=== PATIENT | female | born 1965 | race Caucasian/White ===

== ENCOUNTER 2022-10-28 15:49 | Outpatient (REF) | payer OTHER, SELFPAY ==
--- NOTE | ~2022-10-28 | MR_ITS ---
EXAMINATION: MR BRAIN WITHOUT CONTRAST CLINICAL INFORMATION: Memory problems. COMPARISON: None. TECHNIQUE: Multiplanar, multisequence imaging of the brain was performed without contrast. Limited study with motion artifacts. FINDINGS: No diffusion abnormalities are identified to suggest an acute infarct. No mass effect or midline shift is seen. [id number]-io-[id number] small vessel ischemic changes noted in the cerebral white matter with generalized parenchymal volume loss and concordant ex vacuo prominence of the ventricles. No evidence of hydrocephalus. No extra-axial fluid collections are seen. The brainstem and cerebellum are normal. The gradient refocused acquisition is normal. The craniovertebral junction, marrow signal, and midline structures are normal. The major intracranial flow-voids at the level of the [place] are preserved. The dural venous sinus flow-voids are maintained. The mastoid air cells are well aerated. Mild ethmoid sinus mucosal thickening noted. MR/MR head/brain wo con IMPRESSION: No acute process. [id number] chronic white matter microangiopathy and generalized parenchymal volume loss.
== END 2022-10-28 15:50 | disposition home or self-care (01) ==
LOC: HO.MRI 15:49
PROVIDERS: Visit Provider Psychiatry & Neurology Neurology
DX: R41.3 Other amnesia (principal)
CPT/HCPCS: 70551

== ENCOUNTER → 2022-12-06 10:15 | Outpatient (BNVA) | payer OTHER, SELFPAY | PROVIDERS: PCP Internal Medicine; Visit Provider Psychiatry & Neurology Neurology | DX: R41.3 Other amnesia (principal) ==

== ENCOUNTER → 2023-02-03 12:31 | Outpatient (BNVA) | payer OTHER, SELFPAY | PROVIDERS: PCP Internal Medicine; Visit Provider Psychiatry & Neurology Neurology | DX: R41.3 Other amnesia (principal); Z81.8 Family history of other mental and behavioral disorders; F03.90 Unspecified dementia, unspecified severity, without behavioral disturbance, psychotic disturbance, mood disturbance, and anxiety ==

== ENCOUNTER 2023-05-31 15:03 | Outpatient (AMB) | payer OTHER, SELFPAY ==
--- NOTE | 2023-05-31 15:04 | A.OFFVIS_ITS ---
Intake Intake Visit Reasons: Per Andisabel # [phone] Intake Note: patient presents for follow up Allergies No Known Allergies Allergy (Verified 05/31/23 15:04) Medication List - Last Reconciled 05/31/23 by Lorenza Suh MD ascorbate calcium (vitamin C) 500 mg PO DAILY calcium phos,dibas-vitamin D3 77-400 mg-unit tabs PO DAILY HPI HPI Comments History of Present Illness Details 57y/o female calls for follow up for memory issues. Her family is unable to bring her for appointment due to behavior issues.she is on donepezil 10mg qd but refuses to take it She has fh/o dementia - mother, 2 sisters ( passed-had dementia) , 1 sister 55 y/o has dementia. she is accompanied by her daughter who thinks she has short term memory issues. patient denies any problems Patient is very paranoid now.Her mRI brain showed mi ld white matter changes and labs were normal Patient is upset that she is being tested for dementia. No h/o anxiety, depression. she has sleep problems- falling and staying asleep.she denies snoring. [facility] Family History Mother Dementia Hypertension Father Myocardial infarction Diabetes Sister Breast cancer Dementia Sister Dementia Ovarian cancer Sister Dementia Brother Hypertension CAD (coronary artery disease) CVA (cerebral vascular accident) Arthritis Social History Alcohol intake: never Patient Tobacco Use Status: Never used Tobacco Assessment & Plan Assessment & Plan (1) Family history of first degree relative with dementia: Code(s): Z81.8 - Family history of other mental and behavioral disorders (2) Dementia: Comment: Likely ALzheimers Code(s): F03.90 - Unspecified dementia, unspecified severity, without behavioral disturbance, psychotic disturbance, mood disturbance, and anxiety Plan I will trial her on exelon patch 4.6 mg qd will consider referring her to tertiary center for new experimental therapies. Orders: Referrals Neurology Referral F03.90 - Unspecified dementia, unspecified severity, without behavioral disturbance, psychotic disturbance, mood disturbance, and anxiety, Z81.8 - Family history of other mental and behavioral disorders Medications: New rivastigmine (Exelon Patch) 4.6 mg transdermal DAILY 30 ea 6RF Telehealth Telehealth Location of provider rendering services: practice address Location of patient: address on file Patient Identification confirmed using: Name, : Yes Telehealth method: voice only Patient verbally consented to treatment: Yes Patient verbally consented to billing insurance company: Yes Patient informed of any privacy concerns related to visit: Yes Coding Level of Care Code Tele Est Pt Level 4 (60668) Diagnoses Family history of first degree relative with dementia Z81.8 Dementia F03.90 Time Spent (min) 22
== END 2023-05-31 16:41 | disposition home or self-care (01) ==
LOC: HO.HSMS 15:03
PROVIDERS: PCP Internal Medicine; Visit Provider Psychiatry & Neurology Neurology
DX: Z81.8 Family history of other mental and behavioral disorders (principal); F03.90 Unspecified dementia, unspecified severity, without behavioral disturbance, psychotic disturbance, mood disturbance, and anxiety
CPT/HCPCS: 99214

== ENCOUNTER → 2023-05-31 15:03 | Outpatient (BNVA) | payer OTHER, SELFPAY | PROVIDERS: PCP Internal Medicine; Visit Provider Psychiatry & Neurology Neurology ==

== ENCOUNTER 2023-08-30 12:25 | Outpatient (AMB) | payer OTHER, SELFPAY ==
--- NOTE | 2023-08-30 12:36 | MHC.OFFVIS ---
Intake Vital Signs 08/30/23 12:37 Height 5 ft 3 in Weight 99 lb BMI 17.5 BP 118/62 Blood Pressure Location Rt brachial Position Sitting Respiration 15 Pulse 62 Pulse Source Pulse Oximeter Pulse Oximetry (%) 98 Oxygen Delivery Method Room Air Intake Visit Reasons: 3m f/u memory issues-Confirmed Intake Note: Patient presents for 3 month follow up. Patient states she has been having trouble falling asleep. Once she is asleep she is able to sleep the whole night. Allergies No Known Allergies Allergy (Verified 08/30/23 12:41) HPI HPI Comments History of Present Illness Details 57y/o female comes for follow up for memory issues. .she is on donepezil 10mg qd but refused to take it.She is on exelon patch She has fh/o dementia - mother, 2 sisters ( passed-had dementia) , 1 sister 55 y/o has dementia. she is accompanied by her daughter who thinks she has short term memory issues. patient denies any problems Patient is very paranoid now.Her mRI brain showed mild white matter changes and labs were normal Patient is upset that she is being tested for dementia. No h/o anxiety, depression. she has sleep problems- falling and staying asleep.she denies snoring. [facility] Family History Mother Dementia Hypertension Father Myocardial infarction Diabetes Sister Breast cancer Dementia Sister Dementia Ovarian cancer Sister Dementia Brother Hypertension CAD (coronary artery disease) CVA (cerebral vascular accident) Arthritis Social History Alcohol intake: never Patient Tobacco Use Status: Never used Tobacco Review of Systems Neuro Reports confusion Psych Reports confusion Physical Exam Vital Signs: Last Vital Signs Pulse 62 08/30/23 12:37 Resp 15 08/30/23 12:37 BP 118/62 08/30/23 12:37 Pulse Ox 98 08/30/23 12:37 Oxygen Delivery Method Room Air 08/30/23 12:37 BMI result Body Mass Index 17.5 Const General: cooperative, healthy appearing, comfortable and confusion Nutritional Appearance: average body habitus Orientation/consciousness: confusion Neuro Other: MMSE 20/30 General: gait normal, tone normal, moves all extremities and confusion Cognition (Neuro): abnormal cognition Gait exam (Neuro): Normal gait present Orientation What is the (year) (season) (date) (day) (month)?: year, season and month Where are we (state) (county) (town or city) (hospital) (floor)?: state, town or city, hospital/clinic and floor Registration Name of 3 unrelated objects clearly and slowly, then ask patient to repeat all 3 of them. (1st repeat determines score. Make sure they can repeat all three): object 1, object 2 and object 3 Recall Ask patient to repeat the 3 items from question #3.: object 1 and object 2 Language Show patient a wristwatch & ask what it is. Repeat for pencil.: watch and pencil Ask the patient to repeat the phrase 'No ifs, ands, or buts' after you.: correct Ask the patient to 'take a piece of paper with their right hand' 'fold paper in half' 'place paper on floor': take paper in right hand and fold paper in half Print the sentence 'CLOSE YOUR EYES' on a piece. If patient actually closes eyes then score.: followed written direction Give patient a blank piece of paper & ask to write a sentence. Score if it contains a noun & verb.: sentence contains subject and verb Score Score: 19 Assessment & Plan Assessment & Plan (1) Family history of first degree relative with dementia: Code(s): Z81.8 - Family history of other mental and behavioral disorders (2) Dementia: Comment: Likely ALzheimers Code(s): F03.90 - Unspecified dementia, unspecified severity, without behavioral disturbance, psychotic disturbance, mood disturbance, and anxiety Plan I will trial her on exelon patch 9.5 mg qd will consider referring her to tertiary center for new experimental therapies. Medications: Changed From rivastigmine (Exelon Patch) 4.6 mg transdermal DAILY 30 ea 6RF To rivastigmine 1 patch transdermal DAILY 30 ea 6RF Coding Level of Care Code Est Pt Level 4 (39466) Diagnoses Family history of first degree relative with dementia Z81.8 Dementia F03.90
[2023-08-30 12:37] VITALS: BP 118/62; PULSE 62; RESP 15; O2SAT 98; BMI 17.5
== END 2023-08-30 13:00 | disposition home or self-care (01) ==
PROVIDERS: Visit Provider Psychiatry & Neurology Neurology
DX: Z81.8 Family history of other mental and behavioral disorders (principal); F03.90 Unspecified dementia, unspecified severity, without behavioral disturbance, psychotic disturbance, mood disturbance, and anxiety
CPT/HCPCS: 99214

== ENCOUNTER → 2023-08-30 12:25 | Outpatient (BNVA) | payer OTHER, SELFPAY | PROVIDERS: Visit Provider Psychiatry & Neurology Neurology | DX: R41.3 Other amnesia (principal); Z81.8 Family history of other mental and behavioral disorders; F03.90 Unspecified dementia, unspecified severity, without behavioral disturbance, psychotic disturbance, mood disturbance, and anxiety ==

== ENCOUNTER 2024-03-06 14:09 | Outpatient (REF) | payer OTHER, SELFPAY | END 2024-03-06 14:10 | disposition home or self-care (01) | LOC: CF 14:09 | PROVIDERS: PCP Internal Medicine; Visit Provider Psychiatry & Neurology Neurology | DX: F03.90 Unspecified dementia, unspecified severity, without behavioral disturbance, psychotic disturbance, mood disturbance, and anxiety (principal); Z81.8 Family history of other mental and behavioral disorders | CPT/HCPCS: 81401 ==

== ENCOUNTER 2024-03-06 14:09 | Outpatient (AMB) | payer OTHER, SELFPAY ==
--- NOTE | 2024-03-06 14:11 | A.OFFVIS_ITS ---
Intake Vital Signs 03/06/24 14:12 Respiration 16 Pulse 74 Pulse Source Pulse Oximeter Pulse Oximetry (%) 98 Oxygen Delivery Method Room Air Intake Visit Reasons: 6 mo f/u - Memory-CONF Intake Note: Pt presents for a 6 month follow up for memory issues. 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 .she is not sle eping at night and wanders- last month she wandered out of the house . Now there are locks. .She is on exelon patch she has been physically aggressive with her . she still cooks and cleans but has trouble with recipes. she has been throwing stuff from the house- trying to throw her good clothes and utensils She has fh/o dementia - mother, 2 sisters ( passed-had dementia) , 1 sister 55 y/o has dementia. she is accompanied by her daughter who thinks she has short term memory issues. patient denies any problems Patient is very paranoid now.Her mRI brain showed mild white matter changes and labs were normal Patient is upset that she is being tested for dementia. No h/o anxiety, depression. PFSH Family History Mother Dementia Hypertension Father Myocardial infarction Diabetes Sister Breast cancer Dementia Sister Dementia Ovarian cancer Sister Dementia Brother Hypertension CAD (coronary artery disease) CVA (cerebral vascular accident) Arthritis Social History Alcohol intake: never Patient Tobacco Use Status: Never used Tobacco Review of Systems Neuro Reports confusion Psych Reports confusion Physical Exam Vital Signs: Last Vital Signs Pulse 74 03/06/24 14:12 Resp 16 03/06/24 14:12 Pulse Ox 98 03/06/24 14:12 Oxygen Delivery Method Room Air 03/06/24 14:12 Const General: cooperative, healthy appearing, comfortable and confusion Nutritional Appearance: average body habitus Orientation/consciousness: confusion Neuro Other: MMSE 20/30 General: gait normal, tone normal, moves all extremities and confusion Cognition (Neuro): abnormal cognition Gait exam (Neuro): Normal gait present Assessment & Plan Assessment & Plan (1) Family history of first degree relative with dementia: Code(s): Z81.8 - Family history of other mental and behavioral disorders (2) Dementia: Comment: Likely ALzheimers Code(s): F03.90 - Unspecified dementia, unspecified severity, without behavioral disturbance, psychotic disturbance, mood disturbance, and anxiety Plan Continue exelon patch 9.5 mg qd Start memantine XR 7 mg qd and titrate to 28mg qd Start quetiapine 25 mg qhs for will check for APO E 4 will consider lequembi Orders: Orders Other Ref Test - [facility] [place] F03.90 - Unspecified dementia, unspecified low rity, without behavioral disturbance, psychotic disturbance, mood disturbance, and anxiety, Z81.8 - Family history of other mental and behavioral disorders Referrals Speech and Hearing Referral F03.90 - Unspecified dementia, unspecified severity, without behavioral disturbance, psychotic disturbance, mood disturbance, and anxiety Medications: New memantine 7 mg PO DAILY 30 ea 0RF quetiapine 25 mg PO BEDTIME 30 tabs 6RF Coding Level of Care Code Est Pt Level 4 (28340) Diagnoses Family history of first degree relative with dementia Z81.8 Dementia F03.90
[2024-03-06 14:12] VITALS: PULSE 74; RESP 16; O2SAT 98
== END 2024-03-06 14:43 | disposition home or self-care (01) ==
PROVIDERS: PCP Internal Medicine; Visit Provider Psychiatry & Neurology Neurology
DX: Z81.8 Family history of other mental and behavioral disorders (principal); F03.90 Unspecified dementia, unspecified severity, without behavioral disturbance, psychotic disturbance, mood disturbance, and anxiety
CPT/HCPCS: 99214

== ENCOUNTER 2024-05-02 19:12 | Outpatient (REF) | payer OTHER, SELFPAY ==
--- NOTE | ~2024-05-02 | MR_ITS ---
MRI OF THE BRAIN WITHOUT IV CONTRAST INDICATION: Dementia. COMPARISON: Brain MRI 10/28/2022. TECHNIQUE: Multiplanar multisequence MR imaging of the brain was obtained without IV contrast. FINDINGS: There is no hydrocephalus, extra-axial surface collection, or herniation. There is global cerebral volume loss and there is moderate chronic microangiopathy, both progressed when compared to the prior brain MRI. The major flow voids at the skull base are preserved. There is no acute infarct on diffusion-weighted imaging. There is no intracranial hemorrhage on the gradient recalled echo acquisition. The midline structures are normal. The cerebellar tonsils are normally positioned. The cerebellum and brainstem are normal. The craniocervical junction is normal. Osseous marrow signal intensity is homogenous. The visualized soft tissues are unremarkable. Small right mastoid effusion. MR/MR head/brain wo con IMPRESSION: No acute intracranial findings. There is global cerebral volume loss and there is moderate chronic microangiopathy, both progressed when compared to the prior brain MRI.
== END 2024-05-02 19:13 | disposition home or self-care (01) ==
LOC: HO.MRI 19:12
PROVIDERS: Visit Provider Psychiatry & Neurology Neurology
DX: F03.90 Unspecified dementia, unspecified severity, without behavioral disturbance, psychotic disturbance, mood disturbance, and anxiety (principal)
CPT/HCPCS: 70551

== ENCOUNTER 2024-06-13 16:38 | Outpatient (REF) | payer OTHER, SELFPAY ==
[2024-06-13 16:58] LABS: MANUAL DIFF FLAG NO
[2024-06-13 17:47] LABS: Basophils Absolute Auto 0.1 X10*3/uL (0.0-0.2); Basophils Percent Auto 1.1 % (0-2); Eosinophils Absolute Auto 0.2 X10*3/uL (0.0-0.4); Eosinophils Percent Auto 3.4 % (0-4); Hematocrit 41.4 % (37.0-47.0); Hemoglobin 13.4 g/dl (12.0-16.0); Imm Gran Abs Auto 0.01 X10*3/uL (0.00-0.03); Imm Gran Pct Auto 0.2 % (0.0-0.4); Lymphocytes Absolute Auto 1.3 X10*3/uL (1.2-4.9); Lymphocytes Percent Auto 28.3 % (20-40); Mean Corpuscular HGB Conc 32.4 g/dl (31.0-35.0); Mean Corpuscular Hemoglobin 31.3 pg (27.0-33.0); Mean Corpuscular Volume 96.7 fL (80.0-98.0); Mean Platelet Volume 10.3 fL (9.4-12.3); Monocytes Absolute Auto 0.5 X10*3/uL (0.1-1.2); Monocytes Percent Auto 11.2 % (2-11); Neutrophils Absolute Auto 2.6 x10*3/uL (2.0-8.3); Neutrophils Percent Auto 55.8 % (45-73); Platelet Count 219 X10*3/uL (160-400); Red Blood Count 4.28 X10*6/uL (4.20-5.50); White Blood Count 4.7 X10*3/uL (4.8-10.8)
[2024-06-13 19:10] LABS: Alanine Aminotransferase 38 U/L (0-31); Albumin Level 4.5 g/dL (3.5-5.0); Alkaline Phosphatase 109 U/L (39-117); Anion Gap 13 (12-20); Aspartate Amino Transferase 29 U/L (5-31); Bilirubin Total 0.4 mg/dL (0.0-1.0); Blood Urea Nitrogen 14 mg/dL (9-16); Calcium 9.6 mg/dL (8.4-10.2); Carbon Dioxide 27 mmol/L (22-29); Chloride 107 mmol/L (96-108); Estimated Glomerular Filt Rate > 60; Glucose Random 84 mg/dL (60-115); Potassium 4.2 mmol/L (3.3-5.1); Sodium 143 mmol/L (135-145); Total Protein 7.6 g/dL (6.5-8.0)
[2024-06-13 19:27] LABS: TSH reflex Free T4 1.25 uIU/mL (0.32-4.0)
[2024-06-13 19:40] LABS: Vitamin B12 792 pg/mL (200-900)
[2024-06-13 19:52] LABS: Folate 13.2 ng/mL (> or = 4.0)
[2024-06-13 20:47] LABS: Erythrocyte Sedimentation Rate 3 MM/HR (0-20)
[2024-06-14 10:23] LABS: RPR Rapid Plasma Reagin NON-REACTIVE (NON-REACTIVE)
== END 2024-06-13 16:39 | disposition home or self-care (01) ==
LOC: HO.LAB 16:38
PROVIDERS: Visit Provider Psychiatry & Neurology Neurology
DX: F03.90 Unspecified dementia, unspecified severity, without behavioral disturbance, psychotic disturbance, mood disturbance, and anxiety (principal)
CPT/HCPCS: 36415; 80053; 82607; 82746; 84443; 85025; 85652; 86592

== ENCOUNTER 2025-08-15 09:03 | Outpatient (AMB) | payer MEDICARE, OTHER, SELFPAY ==
--- NOTE | 2025-08-15 09:07 | A.OFFVIS_ITS ---
Vital Signs 08/15/25 09:08 Height 5 ft 3 in Weight 124 lb BMI 22.0 BP 120/74 Blood Pressure Location Rt brachial Position Sitting Pulse 73 Pulse Source Pulse Oximeter Pulse Oximetry (%) 97 Oxygen Delivery Method Room Air Intake Visit Reasons: Follow up Intake Note: Patient presents follow up Dementia medication. Labs in chart Accompanied by: Self / Same As Patient Allergies No Known Allergies Allergy (Verified 08/15/25 09:11) HPI Comments Details: 59y/o female presents for follow up of cognitive decline. Her Diya, helps with history taking today as she is not oriented to self, location or time. She has been forgetful for the past 2+ years. She goes to bed at 6pm and wakes up at 3 am watches tv until 5am. Her takes her to his mother's house daily for 4 hours where she has a NUT SIFTER attending to Moni's ADLs. The NUT SIFTER prepares her meals and keeps her company. She likes to eat oatmeal with coconut oil. Moni's daughter helps with getting her dressed, bathing, and meal preparing at home. Sometimes she will have Bowel and urinary incontinence so now she is starting to wear diapers though she does not like them. She wanders through the house so cameras are installed to observe her escape seeking behaviours . She repeats I clean the house and I watch tv , over and over again. She is confused. She gets aggressive with her and calls him a stalker though feels more comfortable with his mother, and her daughters. She goes for walks with the daughters and is a good walker. She has younger sister 55 year old who has dementia, mom and 2 sisters who passed due to dementia. No h/o anxiety or depression. We attempted MMSE today however pt lacks attention, unable answer questions and repeats, needs redirection. PFSH Family History Mother Dementia Hypertension Father Myocardial infarction Diabetes Sister Breast cancer Dementia Sister Dementia Ovarian cancer Sister Dementia Brother Hypertension CAD (coronary artery disease) CVA (cerebral vascular accident) Arthritis Social History Alcohol intake: never Patient Tobacco Use Status: Never used Tobacco Review of Systems Neuro Reports confusion Psych Reports confusion Physical Exam Vital Signs: Last Vital Signs Pulse 73 08/15/25 09:08 BP 120/74 08/15/25 09:08 Pulse Ox 97 08/15/25 09:08 Oxygen Delivery Method Room Air 08/15/25 09:08 BMI result Body Mass Index 22.0 Const General: cooperative, healthy appearing, comfortable and confusion Nutritional Appearance: average body habitus Orientation/consciousness: confusion Neuro Other: MMSE 20/30 General: gait normal, tone normal, moves all extremities and confusion Cognition (Neuro): abnormal cognition Gait exam (Neuro): Normal gait present Motor exam (neuro): 5/5 motor strength present throughout and Normal motor muscle tone present throughout Language Ask the patient to 'take a piece of paper with their right hand' 'fold paper in half' 'place paper on floor': take paper in right hand Score Score: 1 Assessment & Plan Assessment & Plan (1) Family history of first degree relative with dementia: Code(s): Z81.8 - Family history of other mental and behavioral disorders Category: Medical (2) Dementia: Comment: Likely ALzheimers Code(s): F03.90 - Unspecified dementia, unspecified severity, without behavioral disturbance, psychotic disturbance, mood disturbance, and anxiety Category: Medical Qualifiers: Dementia type: Alzheimer's Alzheimer's disease onset: early onset Dementia severity: unspecified severity Dementia behavioral or psychological symptom: with other behavioral disturbance Qualified Code(s): G30.0 - Alzheimer's disease with early onset; F02.818 - Dementia in other diseases classified elsewhere, unspecified severity, with other behavioral disturbance (3) Cognitive decline: Code(s): R41.89 - Other symptoms and signs involving cognitive functions and awareness Category: Medical (4) Excessive daytime sleepiness: Code(s): G47.19 - Other hypersomnia Category: Medical Plan Dementia continue exelon patch 9.5 mg qd Start memantine XR 7 mg qd and titrate to 28mg qd Start quetiapine 25 mg qhs for mood disturbances and combative / aggressive behavior. MMSE unable today due to moderate/ severe dementia will evaluate with MRI for comparison and PETscan if pt. amenable. Labs to r/o deficiencies will check for APO E 4 will consider lequembi- if pt is able to complete all requirements, pt. information is provided for AD therapy and infusions. Continue to encourage social activities for pt., puzzles, reading books, writing, or dancing, walking, etc. exercise daily is encouraged. F/u in 3 months Orders: Orders Complete Blood Count no Diff Today G47.19 - Other hypersomnia, R41.89 - Other symptoms and signs involving cognitive functions and awareness Comprehensive Met. Panel Today G47.19 - Other hypersomnia, R41.89 - Other symptoms and signs involving cognitive functions and awareness Ferritin Today G47.19 - Other hypersomnia, R41.89 - Other symptoms and signs involving cognitive functions and awareness Methylmalonic Acid Today G47.19 - Other hypersomnia, G47.9 - Sleep disorder, unspecified, R41.89 - Other symptoms and signs involving cognitive functions and awareness, R53.83 - Other fatigue Homocysteine Today G47.19 - Other hypersomnia, G47.9 - Sleep disorder, unspecified, R41.89 - Other symptoms and signs involving cognitive functions and awareness, R53.83 - Other fatigue Vitamin B1 Today G47.19 - Other hypersomnia, R41.89 - Other symptoms and signs involving cognitive functions and awareness TSH reflex Free T4 Today G47.19 - Other hypersomnia, R41.89 - Other symptoms and signs involving cognitive functions and awareness Other [place] [facility] [place] F02.80 - Dementia in other diseases classified elsewhere, unspecified severity, without behavioral disturbance, psychotic disturbance, mood disturbance, and anxiety, G30.9 - Alzheimer's disease, unspecified MR head/brain wo/w con Today R41.89 - Other symptoms and signs involving cogn itive functions and awareness Vitamin D 25-OH Total Today G47.19 - Other hypersomnia, R41.89 - Other symptoms and signs involving cognitive functions and awareness Vitamin B6 Today G47.19 - Other hypersomnia, R41.89 - Other symptoms and signs involving cognitive functions and awareness Vitamin B12 and Folate Today G47.19 - Other hypersomnia, R41.89 - Other symptoms and signs involving cognitive functions and awareness Medications: Refilled memantine 28 mg PO DAILY 30 ea 6RF 30 days quetiapine 25 mg PO BEDTIME 30 tabs 6RF rivastigmine 1 patch transdermal DAILY 30 ea 6RF Coding Level of Care Code Est Pt Level 4 (71179) Diagnoses Family history of first degree relative with dementia Z81.8 Early onset Alzheimer's dementia with other behavioral disturbance, unspecified dementia severity G30.0; F02.818 Dementia type: Alzheimer's Alzheimer's disease onset: early onset Dementia severity: unspecified severity Dementia behavioral or psychological symptom: with other behavioral disturbance Cognitive decline R41.89 Excessive daytime sleepiness G47.19
[2025-08-15 09:08] VITALS: BP 120/74; PULSE 73; O2SAT 97; BMI 22.0
--- OUTSIDE RECORDS SUMMARY | 2025-08-15 09:49 | XMS_ITS | Clinical Summary ---
Author Organization Patient Business Ser [facility] Address [address] [place] [address] Care Team Providers Care Casino Surveillance Officer Name Role Phone Seun Frazier MD Primary Care Provider [phone] Allergies No known active allergies Medications rivastigmine (EXELON) 9.5 mg/24 hour APPLY 1 PATCH TRANSDERMALLY DAILY 01/31/20 24 Active QUEtiapine (SEROquel) 25 mg tablet Take 1 tablet (25 mg total) by mouth at bedtime. at bedtime 90 tablet 1 08/08/20 25 Active memantine (NAMENDA XR) 28 mg extended release capsule Take 1 capsule (28 mg total) by mouth 1 (one) time each day. 90 each 1 08/08/20 25 Active memantine (NAMENDA XR) 7 mg extended release capsule Take 1 capsule (7 mg total) by mouth 1 (one) time each day. 03/06/20 24 025 Discontin ued(Patie nt Discharge ) QUEtiapine (SEROquel) 25 mg tablet TAKE 1 TABLET BY MOUTH EVERY DAY AT BEDTIME 03/06/20 24 025 Discontin ued(Reord er) memantine (NAMENDA XR) 28 mg extended release capsule Take 1 capsule (28 mg total) by mouth 1 (one) time each day. 10/08/20 24 025 Discontin ued(Reord er) Active Problems Problem Noted Date Diagnosed Date Severe Alzheimer's dementia (CMS/HCC V24, CMS/HC C V28) 04/29/2025 Ganglion cyst of wrist 09/05/2009 Varicose veins of legs 04/07/2009 Benign neoplasm of skin of lower limb, including hip 08/05/2005 Benign neoplasm of skin of upper limb, including shoulder 08/05/2005 Ovarian cyst 08/05/2005 Overview (08/22/2024): Other and unspecified ovarian cyst Encounters Date Type Department Care Team Description 08/08/2025 9:00 AM EDT [facility] [address] [place] [phone] Gabby Burdick, GIA Severe Alzheimer's dementia with agitation, unspecified timing of dementia onset ([facility] V24, [facility] V28) 08/05/2025 Telephone Internal Medicine - [address] [phone] Seun Frazier MD 07/15/2025 Telephone Internal Medicine - [address] [phone] Seun Frazier MD 06/28/2025 Telephone Internal Medicine - [address] [phone] Seun Frazier MD 06/07/2025 Telephone Internal Medicine - [address] [phone] Seun Frazier MD from Last 3 Months Immunizations Name Administration Dates Next Due Hepatitis B (Recombivax HB-D ialysis) 18yo and older 05/27/2003,01/28/2003,12/26/2002 Influenza Quadravalent, MDCK , 0.5ml, preservative free (Flucelvax) 6mo and older 12/28/2022 Moderna SARS-CoV-2 COVID-19, mRNA, LNP-S, preservative free 05/13/2021,04/15/2021 Tdap Tetanus diptheria acell ular pertussis (Boostrix; Adacel) 7yo and older 09/05/2019,04/07/2009 Surgical History Surgery Date Site/Laterality Comments TUBAL LIGATION 1998 PROCEDURE: HISTORICAL TUBAL LIGATION Medical History Medical History Date Comments Benign neoplasm of skin of l ower limb, including hip 08/05/2005 DX:Benign neoplasm of skin o f lower limb, including hip Benign neoplasm of skin of u pper limb, including shoulder 08/05/2005 DX:Benign neoplasm of skin o f upper limb, including shoulder Other and unspecified ovarian cyst 08/05/2005 DX:Other and unspecified ovarian cyst Varicose veins of legs 04/07/2009 DX:Varico se veins of legs Ganglion cyst of wrist 09/05/2009 DX:Gangli on cyst of wrist Family History Medical History Relation Name Comments Arthritis Brother Coronary artery disease Brother Diabetes Brother Hypertension Brother Stroke Brother Diabetes Father Heart attack Father diabetes Breast cancer Father's side paternal cous in Dementia Mother Hypertension Mother Breast cancer Sister 1 Dementia Sister 1 Ovarian cancer Sister 1 Dementia Sister 2 Dementia Sister 3 Colon cancer Neg Hx Relation Name Status Comments Brother Father Father's side Mother Sister 1 Sister 2 Alive Sister 3 Alive Social History Tobacco Use Types Packs/Day Years Used Date Smoking Tobacco: Never Smokeless Tobacco: Never Tobacco Cessation:Counseling Given: Not Answered Alcohol Use Standard Drinks/Week Comments Not Currently 0 (1 standard drink = 0.6 oz pur e alcohol) Comments No Sex and Gender Information Value Date Recorded Sex Assigned at Not on file Legal Sex Female 12:12 PM EDT Gender Identity Female 09/20/2022 12:16 PM EDT Sexual Orientation Not on file Obstetrics History Last Filed Vital Signs Vital Sign Reading Time Taken Comments Blood Pressure 111/73 08/08/2025 9:06 AM EDT Pulse 78 08/08/2025 9:06 AM EDT Temperature 36.8 C (98.3 F) 08/08/2025 9:06 AM EDT Respiratory Rate - - Oxygen Saturation - - Inhaled Oxygen Concentration - - Weight 55.3 kg (122 lb) 08/08/2025 9:06 AM EDT Height 160 cm (5' 3 ) 01/09/2025 3:47 PM EST Body Mass Index 21.61 01/09/2025 3:47 PM EST Plan of Treatment Upcoming Encounters Date Type Department Care Team (Late st Contact Info) Description 08/17/2025 1:30 PM EDT Appointment Radiology Department [address] [phone] Health Maintenance Due Date Last Done Comments Zoster Vaccines (1 of 2) 1982 Pneumococcal Vaccine: 50+ Years (1 of 1 - PCV) 2013 Medicare Annual Wellness Visit 09/20/2022 Social Influencers of Health Screening 09/20/2022 Colorectal Cancer Screening: Colonoscopy 10/22/2024 10/22/2014 Depression Screening 11/21/2024 Cervical Cancer Screening: HPV 12/04/2024 12/04/2019 Breast Cancer Screening 04/20/2025 04/20/20, 11/12/2021, 07/09/2019, Additional history exists COVID-19 Vaccine ( season) 2025 06/04/2021, 05/13/2021, 04/15/2021 Influenza Vaccine (#1) 2025 , 08/21/2019, 08/23/2018, Additional history exists DTaP,Tdap,and Td Vaccines (3 - Td or Tdap) 09/05/2029 09/05/2019, 04/07/2009 Cholesterol Screening (Lipid Panel) 01/09/2030 01/09/2025, 11/23/2022 RSV Immunization Adult Patients (1 - 1-dose 75+ series) 2038 Hepatitis B Vaccines Completed 05/27/2003, 01/28/2003, 12/26/2002 HIV Screening Completed 04/15/2009 Hepatitis C Screening Completed 04/13/2013 HIB Vaccines Aged Out No longer eligi ble based on patient's age to complete this topic HPV Vaccines Aged Out No longer eligi ble based on patient's age to complete this topic Hepatitis A Vaccines Aged Out No long er eligible based on patient's age to complete this topic IPV Vaccines Aged Out No longer eligi ble based on patient's age to complete this topic MMR Vaccines Aged Out No longer eligi ble based on patient's age to complete this topic Meningococcal ACWY Vaccine Aged Out N o longer eligible based on patient's age to complete this topic Meningococcal B Vaccine Aged Out No l onger eligible based on patient's age to complete this topic RSV Immunization Patients Under 20 months Aged Out No longer eligible based on patient's age to complete this topic Varicella Vaccines Aged Out No longer eligible based on patient's age to complete this topic Procedures Procedure Name Priority Date/Time Associated Diagnosis Comments LIPID PANEL WITH REFLEX TO DIRECT LDL Routine 01/09/2025 4:38 PM EST Screening for hyperlipidemia [facility] SCREENING DIGITAL Routine 04/20/2023 5:19 PM EDT Encounter for screening mammogram for malignant neoplasm of breast HPV Routine 12/04/2019 COLONOSCOPY Routine 10/22/2014 HEPATITIS C SCREENING Routine 04/13/2013 HIV SCREENING Routine 04/15/2009 from Last 3 Months or Most Recently Relevant to Health Maintenance Results * (ABNORMAL) Lipid panel with reflex to direct LDL (01/09/2025 4:38 PM EST) Cholesterol 180 0 - 200 mg/dL LAB CHEMISTRY METHOD 01/09/2025 7:12 PM [facility] Triglycerides 58 0 - 150 mg/dL LAB CHEMISTRY METHOD 01/09/2025 7:12 PM [facility] HDL 62 >=40 mg/dL LAB CHEMISTRY METHOD 01/09/2025 7:12 PM [facility] LDL Calculated 106(H) 0 - 100 mg/dL LAB CHEMISTRY METHOD 01/09/2025 7:12 PM [facility] VLDL Cholesterol David 11.6 mg/dL LAB CHEMISTRY METHOD 01/09/2025 7:12 PM [facility] Non HDL Chol. (LDL+VLDL) 118 <145 mg/dL LAB CHEMISTRY METHOD 01/09/2025 7:12 PM [facility] Chol/HDL Ratio 2.9 0.0 - 4.4 LAB CHEMISTRY METHOD 01/09/2025 7:12 PM [facility] Blood Venous blood specimen / Unknown Venipuncture / Unknown 01/09/2025 4:38 PM EST 01/09/2025 4:38 PM EST us Seun Frazier MD LAB BLOOD ORDERABLES Final Res ult [facility] ([email or web address] LAB [address] [place] [address], [place] [phone] * SRI SCREENING DIGITAL (04/20/2023 5:19 PM EDT) Anatomical Region Laterality Modality Mammography 04/20/2023 2:34 PM EDT Narrative 04/20/2023 5:[address] [facility] Diagnostic Imaging Department [address] [place] [address] Patient: MONI MORILLO/Age/Sex: 1965 - 57 - F Unit#: [id number] Location/Status: [facility] CLI Mnemonic/Ordering Site: [facility] Ordering Physician: KATHERINE MCCOY DO Sri Screening Digital - 04/20/23 - 1639 EXAM: Sri Screening Digital EXAM DATE AND TIME: 04/20/2023 4:39 PM HISTORY: Screening. COMPARISON: 11/12/21, 07/09/19, 05/04/17 TECHNIQUE: CC and MLO views of both breasts were obtained using full field digital mammography. Bilateral digital breast tomosynthesis was performed in the MLO projection. Computer aided detection with iCAD PowerLook 7.2-H and [employer] 3D 3.1 was employed. TISSUE DENSITY: c. The breasts are heterogeneously dense, which may obscure small masses. FINDINGS: No suspicious masses, grouped microcalcifications, or areas of architectural distortion are seen. The skin and vascularity are unremarkable. IMPRESSION: Stable mammographic appearance of the breasts. No evidence of malignancy is seen. A negative mammogram in the presence of a clinically suspicious palpable abnormality does not preclude the possibility of malignancy or alter the indications for biopsy. BI-RADS: Category 1: Negative RECOMMENDATION(S): 1: Routine screening mammogram BILATERAL in 1 year. 82205, 28681 3341F, 7025F Dictating Physician: CHASIDY WILCOX MD Electronically Signed by: CHASIDY WILCOX MD Dic Date/Time: 04/20/231718 Sign date/Time: 04/20/231718 Procedure Note Chasidy Wilcox MD - 12/23/2023 [facility] Diagnostic Imaging Department [address] [place] [address] Patient: YISELMONI /Age/Sex: 1965 - 57 - F Unit#: [id number] Location/Status: [facility]/REG CLI Mnemonic/Ordering Site: [facility] Ordering Physician: KATHERINE MCCOY DO [facility] Screening Digital - 04/20/23 - 1639 EXAM: [facility] Screening Digital EXAM DATE AND TIME: 04/20/2023 4:39 PM HISTORY: Screening. COMPARISON: 11/12/21, 07/09/19, 05/04/17 TECHNIQUE: CC and MLO views of both breasts were obtained using fullfield digital mammography. Bilateral digital breast tomosynthesis was performedin the MLO projection. Computer aided detection with iCAD [employer] 7.2-H and[employer] 3D 3.1 was employed. TISSUE DENSITY: c. The breasts are heterogeneously dense, which mayobscure small masses. FINDINGS: No suspicious masses, grouped microcalcifications, or areas ofarchitectural distortion are seen. The skin and vascularity are unremarkable. IMPRESSION: Stable mammographic appearance of the breasts. No evidence of malignancyis seen. A negative mammogram in the presence of a clinically suspicious palpable abnormality does not preclude the possibility of malignancy or alter the indications for biopsy. BI-RADS: Category 1: Negative RECOMMENDATION(S): 1: Routine screening mammogram BILATERAL in 1 year. 48789, 15733 3341F, 7025F Dictating Physician: CHASIDY WILCOX MD Electronically Signed by: CHASIDY WILCOX MD Dic Date/Time: 04/20/231718 Sign date/Time: 04/20/231718 Katherine Mccoy DO IMG BI PROCEDURES Final Result * Cervical Cancer Screening: HPV (12/04/2019) [facility] Cervical Cancer Screening: HPV abstracted, negative [facility] Provider HEALTH MAINTENANCE Final Result * Colonoscopy (10/22/2014) [facility] Colonoscopy abstracted, no interpretation Anatomical Region Laterality Modality Other [facility] Provider HEALTH MAINTENANCE Final Result * Hepatitis C Screening (04/13/2013) [facility] Hepatitis C Screening abstracted [facility] Provider HEALTH MAINTENANCE Final Result * HIV Screening (04/15/2009) [facility] HIV Screening abstracted [facility] Provider HEALTH MAINTENANCE Final Result from Last 3 Months or Most Recently Relevant to Health Maintenance Insurance [facility] MEDICARE Care Teams Casino Surveillance Officer Relationship Specialty Start Date End Date Seun Frazier MD [address] [place] [phone] PCP - General 04/05/00
== END 2025-08-15 10:06 | disposition home or self-care (01) ==
LOC: HO.HSMS 09:04
PROVIDERS: PCP Internal Medicine; Visit Provider Physician Assistant Medical
DX: Z81.8 Family history of other mental and behavioral disorders (principal); G30.0 Alzheimer's disease with early onset; F02.818 Dementia in other diseases classified elsewhere, unspecified severity, with other behavioral disturbance; R41.89 Other symptoms and signs involving cognitive functions and awareness; G47.19 Other hypersomnia
CPT/HCPCS: 99214

== ENCOUNTER → 2025-08-15 09:03 | Outpatient (BNVA) | payer MEDICARE, SELFPAY | PROVIDERS: PCP Internal Medicine; Visit Provider Physician Assistant Medical | DX: G30.0 Alzheimer's disease with early onset (principal); F02.818 Dementia in other diseases classified elsewhere, unspecified severity, with other behavioral disturbance; Z91.83 Wandering in diseases classified elsewhere; Z81.8 Family history of other mental and behavioral disorders; R41.89 Other symptoms and signs involving cognitive functions and awareness; G47.19 Other hypersomnia | CPT/HCPCS: 99212 ==

== ENCOUNTER 2025-09-05 14:04 | Outpatient (REF) | payer MEDICARE, SELFPAY ==
--- NOTE | ~2025-09-05 | MR_ITS ---
CLINICAL HISTORY: R41.89 - Other symptoms and signs involving cognitive functions and awar... MR Brain with and without gadolinium Comparison: MR/SR - MR BRAIN WITHOUT IV CONTRAST - 05/02/2024 07:58 PM EDT Findings: No restricted diffusion. No intra-axial mass or hemorrhage. No midline shift. No acute hydrocephalus. Vascular flow voids are intact. There is moderate diffuse atrophy and periventricular white matter change possibly related to chronic microvascular ischemia. Orbital contents are unremarkable. The sinuses and mastoid air cells are clear. No focal bone lesion. IMPRESSION: Findings possibly related to chronic microvascular ischemia. No acute findings This document has been electronically signed by: Javier Holland MD on 09/06/2025 13:08:47
--- OUTSIDE RECORDS SUMMARY | 2025-09-05 17:53 | XMS_ITS | Clinical Summary ---
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 Name Role Phone Seun Frazier MD Primary Care Provider [phone] Allergies No known active allergies Medications rivastigmine [...] AM EDT [facility] [address] [place] [phone] Gabby Burdick, GIA Severe Alzheimer's dementia with agitation, unspecified timing of dementia onset ([facility] V24, [facility] V28) 08/05/2025 [facility] [phone] Seun Frazier MD 07/15/2025 Telephone Internal Medicine - [address] [phone] Seun Frazier MD 06/28/2025 Telephone Internal Medicine - [address] [phone] Seun Frazier MD 06/07/2025 Telephone Internal Medicine - [address] [phone] Seun Frazier MD from Last 3 Months Immunizations Immunization Administration Dates Next Due Hepatitis B (Recombivax [...] 01/09/2025 3:47 PM EST Plan of Treatment Health Maintenance Due Date Last Done Comments Zoster Vaccines (1 of 2) 1982 Pneumococcal Vaccine: 50+ Years (1 of 1 - PCV) 2013 Medicare Annual Wellness Visit 09/20/2022 Social Influencers of Health Screening 09/20/2022 Colorectal Cancer Screening: Colonoscopy 10/22/2024 10/22/2014 Depression Screening 11/21/2024 Cervical Cancer Screening: HPV 12/04/2024 12/04/2019 Breast Cancer Screening 04/20/2025 04/20/20 23, 11/12/2021, 07/09/2019, Additional history exists COVID-19 Vaccine ( season) 2025 06/04/2021, 05/13/2021, 04/15/2021 Influenza Vaccine (#1) 2025 3, 08/21/2019, 08/23/2018, Additional history exists DTaP,Tdap,and Td [...] 01/09/2025 4:38 PM EST Screening for hyperlipidemia SRI SCREENING DIGITAL Routine 04/20/2023 5:19 PM EDT [...] mg/dL LAB CHEMISTRY METHOD 01/09/2025 7:12 PM EST [facility] Triglycerides 58 0 - 150 mg/dL LAB CHEMISTRY METHOD 01/09/2025 7:12 PM EST [facility] HDL 62 >=40 mg/dL LAB CHEMISTRY METHOD 01/09/2025 7:12 PM EST [facility] LDL Calculated 106(H) 0 - 100 mg/dL LAB CHEMISTRY METHOD 01/09/2025 7:12 PM EST [facility] VLDL Cholesterol David 11.6 mg/dL LAB CHEMISTRY METHOD 01/09/2025 7:12 PM EST [facility] Non HDL Chol. (LDL+VLDL) 118 <145 mg/dL LAB CHEMISTRY METHOD 01/09/2025 7:12 PM EST [facility] Chol/HDL Ratio 2.9 0.0 - 4.4 LAB CHEMISTRY METHOD 01/09/2025 7:12 PM [facility] Blood Venous blood specimen / Unknown Venipuncture / Unknown 01/09/2025 4:38 PM EST 01/09/2025 4:38 PM EST us Seun Frazier MD LAB BLOOD ORDERABLES Final Res ult [facility] LAB [address] [place] [address], * SRI SCREENING DIGITAL (04/20/2023 5:19 PM EDT) Anatomical Region Laterality Modality Mammography 04/20/2023 2:34 PM EDT Narrative 04/20/2023 5:[address] [facility] Diagnostic Imaging Department [address] [place] [address] Patient: MONI MORILLO./Age/Sex: 1965 - 57 - F Unit#: [id number] Location/Status: [facility] CLI Mnemonic[facility] Order[facility] Physician: KATHERINE MCCOY DO Sri Screening Digital - 04/20/23 - 1639 EXAM: [facility] Screening Digital EXAM DATE AND TIME: 04/20/2023 4:39 PM HISTORY: Screening. COMPARISON: 11/12/21, 07/09/19, 05/04/17 TECHNIQUE: CC and MLO views of both breasts were obtained using full field digital mammography. Bilateral digital breast tomosynthesis was performed in the MLO projection. Computer aided detection with [employer] 7.2-H and [employer] 3D 3.1 was employed. TISSUE DENSITY: c. [...] Routine screening mammogram BILATERAL in 1 year. 81568, 76974 3341F, 7025F Dictating Physician: CHASIDY WILCOX MD Electronically Signed by: CHASIDY WILCOX MD Dic Date/Time: 04/20/231718 Sign date/Time: 04/20/231718 Procedure Note Chasidy Wilcox MD - 12/23/2023 [facility] Diagnostic Imaging Department [address] [place], [place] [id number] Patient: YISELMONI /Age/Sex: 1965 - 57 - F Unit#: [id number] Location/Status: [facility] Mnemonic/Ordering Site: [facility] Ordering Physician: KATHERINE MCCOY DO [facility] Screening Digital - 04/20/23 - 1638 EXAM: [facility] Screening Digital EXAM DATE AND TIME: 04/20/2023 4:39 PM HISTORY: Screening. COMPARISON: 11/12/21, 07/09/19, 05/04/17 TECHNIQUE: CC and MLO views of both breasts were obtained using fullfield digital mammography. Bilateral digital breast tomosynthesis was performedin the MLO projection. Computer aided detection with iCAD PowerLook 7.2-H andiCAD [employer] 3D 3.1 was employed. TISSUE DENSITY: c. [...] Routine screening mammogram BILATERAL in 1 year. 72036, 30856 3341F, 7025F Dictating Physician: CHASIDY WILCOX MD Electronically Signed by: CHASIDY WILCOX MD Dic Date/Time: 04/20/231718 Sign date/Time: 04/20/231718 Result [facility] Katherine Mccoy DO IMG BI PROCEDURES Final Result * Cervical Cancer Screening: HPV (12/04/2019) [facility] Cervical Cancer Screening: HPV abstracted, negative [facility] HEALTH MAINTENANCE Final Result * Colonoscopy (10/22/2014) [facility] Colonoscopy abstracted, no interpretation Anatomical Region Laterality Modality Other Result [facility] HEALTH MAINTENANCE Final Result * Hepatitis C Screening (04/13/2013) [facility] Hepatitis C Screening abstracted Result [facility] HEALTH MAINTENANCE Final Result * HIV Screening (04/15/2009) [facility] HIV Screening abstracted Result [facility] HEALTH MAINTENANCE Final Result from Last 3 Months or Most Recently Relevant to Health Maintenance Insurance [facility] MEDICARE Care Teams 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
== END 2025-09-05 14:05 | disposition home or self-care (01) ==
LOC: HO.MRI 14:04
PROVIDERS: Visit Provider Physician Assistant Medical
DX: R41.89 Other symptoms and signs involving cognitive functions and awareness (principal)
CPT/HCPCS: 70553; A9585

== ENCOUNTER → 2025-09-05 14:32 | Outpatient (BNV) | payer MEDICARE, SELFPAY | PROVIDERS: Visit Provider Specialist | DX: R41.89 Other symptoms and signs involving cognitive functions and awareness (principal) | CPT/HCPCS: 70553 ==

== ENCOUNTER 2025-11-12 09:32 | Outpatient (AMB) | payer MEDICARE, OTHER, SELFPAY ==
--- NOTE | 2025-11-12 09:43 | MHC.OFFVIS ---
Vital Signs 11/12/25 09:44 Height 5 ft 3 in Weight 131 lb 2 oz BMI 23.2 BP 120/62 Blood Pressure Location Rt brachial Position Sitting Pulse 82 Pulse Source Pulse Oximeter Pulse Oximetry (%) 97 Oxygen Delivery Method Room Air Intake Visit Reasons: 3mnth Intake Note: Patient presents follow up Dementia. No Labs. MRI in chart Game Attendant Required: No Accompanied by: Spouse Allergies No Known Allergies Allergy (Verified 11/12/25 09:43) HPI Comments Details: 59y/o female presents for follow up of cognitive decline. Her Diya, helps with history taking, as she is not oriented to self, time or location. Interim Medical History: She went to see her nephew in [place] for one month, since then appetite improved and started eating 3 meals a day. She started to initiate strategies for self care like walking daily and taking part in cooking. Denies h/o anxiety or depression. For the past two years she has been forgetful. She goes to bed at 9pm and falls asleep at midnight then sleeps through the night. She has multiple awakenings at night, and can sleep all day. Her takes her to his mother's house daily for 4 hours and notices she improves with social interactions with his mother and the 911 emergency services dispatcher. He is now looking for a 1/2 day program for her. He works from 11am to 3pm now to manage her daily tasks such as bathing, dressing, cooking, cleaning. She has bowel and urinary incontinence and needs assistance with transferring, toileting. She started wearing diapers though does not like them. She wanders through the house so cameras are installed to observe her escape seeking behaviours . She has repeating behavior with internal dialogue, with her sisters, mother, kids. Denies visual hallucinations.She gets aggressive with her and calls him a stalker though feels more comfortable with his mother, and her daughters. She has started to allow her to help her now. FH + younger sister 55 year old who has dementia, mom and 2 sisters who passed due to dementia. We attempted MMSE today however pt lacks attention, unable answer questions and repeats, needs redirection. PFSH Family History Mother Dementia Hypertension Father Myocardial infarction Diabetes Sister Breast cancer Dementia Sister Dementia Ovarian cancer Sister Dementia Brother Hypertension CAD (coronary artery disease) CVA (cerebral vascular accident) Arthritis Social History Alcohol intake: never Patient Tobacco Use Status: Never used Tobacco Review of Systems Neuro Reports confusion Psych Reports confusion Physical Exam Vital Signs: Last Vital Signs Pulse 82 11/12/25 09:44 BP 120/62 11/12/25 09:44 Pulse Ox 97 11/12/25 09:44 Oxygen Delivery Method Room Air 11/12/25 09:44 BMI result Body Mass Index 23.2 Const General: cooperative, healthy appearing, comfortable and confusion Nutritional Appearance: average body habitus Orientation/consciousness: confusion Eyes Pupils: Equal, round and reactive pupils present Neuro Other: Confused, needs redirection, repetition. Follows directions. General: gait normal, tone normal, moves all extremities and confusion Cranial nerves: Yes Equal, round and reactive pupils present, Yes Normal accommodation reflex present, Yes Ability to bilaterally rotate head present and Yes Ability to bilaterally elevate shoulders present Cognition (Neuro): abnormal cognition Gait exam (Neuro): Normal gait present Motor exam (neuro): 5/5 motor strength present throughout and Normal motor muscle tone present throughout Psych Mental Status: other Insight: Limited insight present (Psych) Judgement: Limited judgement present (Psych) Results Reviewed Results Reviewed: There is moderate diffuse atrophy and periventricular white matter change possibly related to chronic microvascular ischemia. Assessment & Plan Assessment & Plan (1) Family history of first degree relative with dementia: Code(s): Z81.8 - Family history of other mental and behavioral disorders Category: Medical (2) Dementia: Comment: Likely ALzheimers Code(s): F03.90 - Unspecified dementia, unspecified severity, without behavioral disturbance, psychotic disturbance, mood disturbance, and anxiety Category: Medical Qualifiers: Alzheimer's disease onset: early onset Dementia behavioral or psychological symptom: with other behavioral disturbance Dementia severity: unspecified severity Dementia type: Alzheimer's Qualified Code(s): G30.0 - Alzheimer's disease with early onset; F02.818 - Dementia in other diseases classified elsewhere, unspecified severity, with other behavioral disturbance (3) Cognitive decline: Code(s): R41.89 - Other symptoms and signs involving cognitive functions and awareness Category: Medical (4) Excessive daytime sleepiness: Code(s): G47.19 - Other hypersomnia Category: Medical Plan HST r/o PEYTON insomnia / sleep disorder, declines today. Moderate to severe Alzheimers Dementia continue exelon patch 9.5 mg qd continue memantine 28mg qd continue quetiapine 25 mg qhs for mood disturbances and combative and or aggressive behavior. MMSE unable today due to moderate/ severe dementia will evaluate with MRI for comparison and PETscan if pt. amenable. Labs to r/o deficiencies will check for APO E 4 will consider lequembi? if pt is able to complete all requirements, pt. information is provided for AD therapy and infusions. Continue to encourage social activities for pt., puzzles, reading books, writing, cooking, baking with supervision, and or dancing, walking, etc. exercise daily is encouraged. Day program 1/2 day with community navigation. F/u in 3 months Orders: Orders RT home sleep study Today G47.19 - Other hypersomnia Medications: Refilled quetiapine 25 mg PO BEDTIME 30 tabs 6RF rivastigmine 1 patch transdermal DAILY 30 ea 6RF memantine 28 mg PO DAILY 30 ea 6RF 30 days Coding Level of Care Code Est Pt Level 4 (49768) Diagnoses Family history of first degree relative with dementia Z81.8 Early onset Alzheimer's dementia with other behavioral disturbance, unspecified dementia severity G30.0; F02.818 Alzheimer's disease onset: early onset Dementia behavioral or psychological symptom: with other behavioral disturbance Dementia severity: unspecified severity Dementia type: Alzheimer's Cognitive decline R41.89 Excessive daytime sleepiness G47.19
[2025-11-12 09:44] VITALS: BP 120/62; PULSE 82; O2SAT 97; BMI 23.2
--- OUTSIDE RECORDS SUMMARY | 2025-11-12 10:19 | XMS_ITS | Clinical Summary ---
Author Organization [facility] Address [address] [place] [address] Care Team Providers Care Customer Response Representative Name Role Phone Seun Frazier MD Primary Care Provider Allergies No known active allergies Medications rivastigmine (EXELON) 9.5 mg/24 hour APPLY 1 PATCH TRANSDERMALLY DAILY 4 Active QUEtiapine (SEROquel) 25 mg tablet Take 1 tablet (25 mg total) by mouth at bedtime. at bedtime 90 tablet 1 5 Active memantine (NAMENDA XR) 28 mg extended release capsule Take 1 capsule (28 mg total) by mouth 1 (one) time each day. 90 each 1 5 Active Active Problems Problem Noted Date Diagnosed Date Severe Alzheimer's dementia 04/29/2025 Ganglion cyst of wrist 09/05/2009 Varicose veins of legs 04/07/2009 Benign neoplasm of skin of lower limb, including hip 08/05/2005 Benign neoplasm of skin of upper limb, including shoulder 08/05/2005 Ovarian cyst 08/05/2005 Overview (08/22/2024): Other and unspecified ovarian cyst Immunizations Immunization Administration Dates Next Due Hepatitis [...] PM EDT Sexual Orientation Not on file Last Filed Vital Signs Vital Sign Reading [...] 07/09/2019, Additional history exists COVID-19 Vaccine ( - season) 2025 06/04/2021, 05/13/2021, 04/15/2021 Influenza Vaccine [...] 01/09/2025 4:38 PM EST Screening for hyperlipidemia [facility] SCREENING DIGITAL Routine 04/20/2023 5:19 PM [...] mg/dL LAB CHEMISTRY METHOD 01/09/2025 7:12 PM [facility] Triglycerides 58 0 - 150 mg/dL LAB CHEMISTRY METHOD 01/09/2025 7:12 PM [facility] HDL 62 >=40 mg/dL LAB CHEMISTRY METHOD 01/09/2025 7:12 PM [facility] LDL Calculated 106(H) 0 - 100 mg/dL LAB CHEMISTRY METHOD 01/09/2025 7:12 PM [facility] VLDL Cholesterol David 11.6 mg/dL LAB CHEMISTRY METHOD 01/09/2025 7:12 PM [facility] Non HDL Chol. (LDL+VLDL) 118 <145 mg/dL LAB CHEMISTRY METHOD 01/09/2025 7:12 PM [facility] Chol/HDL Ratio 2.9 0.0 - 4.4 LAB CHEMISTRY METHOD 01/09/2025 7:12 PM [facility] Blood Venous blood specimen / Unknown Venipuncture / Unknown 01/09/2025 4:38 PM EST 01/09/2025 4:38 PM EST us Seun Frazier MD LAB BLOOD ORDERABLES Final Res ult [facility] [address] [place] [address], [place] [phone] * SRI SCREENING DIGITAL (04/20/2023 5:19 PM EDT) Anatomical Region Laterality Modality Mammography 04/20/2023 2:34 PM EDT Narrative 04/20/2023 5:19 PM EDT [facility] Diagnostic Imaging Department [address] [place] [address] Patient: MONI MORILLO /Age/Sex: 1965 - 57 - F Unit#: [id number] Location/Status: [facility] CLI Mnemonic/Ordering Site: [facility] Ordering Physician: KATHERINE MCCOY DO Sri Screening Digital - 04/20/231638 EXAM: Sri Screening Digital EXAM DATE AND TIME: 04/20/2023 4:39 PM HISTORY: Screening. COMPARISON: 11/12/21, 07/09/19, 05/04/17 TECHNIQUE: CC and MLO views of both breasts were obtained using full field digital mammography. Bilateral digital breast tomosynthesis was performed in the MLO projection. Computer aided detection with [employer] 7.2-H and [employer] 3D 3.1 was employed. TISSUE DENSITY: c. [...] Routine screening mammogram BILATERAL in 1 year. 30523, 15532 3341F, 7048F Dictating Physician: CHASIDY WILCOX MD Electronically Signed by: CHASIDY WILCOX MD Dic Date/Time: 04/20/231718 Sign date/Time: 04/20/231718 Procedure Note Chasidy Wilcox MD - 12/23/2023 [facility] Diagnostic Imaging Department [address] [place] [address] Patient: MONI MORILLOO.B./Age/Sex: 1965 - 57 - F Unit#: [id number] Location/Status: [facility] CLI Mnemonic/Ordering Site: [facility] Ordering Physician: KATHERINE MCCOY DO [facility] Screening Digital - 04/20/23 - 1638 EXAM: [facility] Screening Digital EXAM DATE AND TIME: 04/20/2023 4:39 PM HISTORY: Screening. COMPARISON: 11/12/21, 07/09/19, 05/04/17 TECHNIQUE: CC and MLO views of both breasts were obtained using fullfield digital mammography. Bilateral digital breast tomosynthesis was performedin the MLO projection. Computer aided detection with [employer] 7.2-H and[employer] 3D 3.1 was employed. TISSUE DENSITY: c. [...] Routine screening mammogram BILATERAL in 1 year. 55254, 58246 3341F, 7025F Dictating Physician: CHASIDY WILCOX MD Electronically Signed by: CHASIDY WILCOX MD Dic Date/Time: 04/20/231718 Sign date/Time: 04/20/231718 Katherine Mccoy DO IMG BI PROCEDURES Final Result * Cervical Cancer Screening: HPV (12/04/2019) [facility] Cervical Cancer Screening: HPV abstracted, negative [facility] [employer] Final Result * Colonoscopy (10/22/2014) [facility] Colonoscopy abstracted, no interpretation Anatomical Region Laterality Modality Other [facility] [employer] Final Result * Hepatitis C Screening (04/13/2013) [facility] Hepatitis C Screening abstracted [facility] [employer] Final Result * HIV Screening (04/15/2009) [facility] HIV Screening abstracted [facility] [employer] Final Result from Last 3 Months or Most Recently Relevant to Health Maintenance Insurance [facility] MEDICARE Care Teams Customer Response Representative Relationship Specialty Start Date End Date Seun Frazier MD [address] [place] [phone] PCP - General 04/05/00
== END 2025-11-12 10:39 | disposition home or self-care (01) ==
LOC: HO.HSMS 09:33
PROVIDERS: PCP Internal Medicine; Visit Provider Physician Assistant Medical
DX: Z81.8 Family history of other mental and behavioral disorders (principal); G30.0 Alzheimer's disease with early onset; F02.818 Dementia in other diseases classified elsewhere, unspecified severity, with other behavioral disturbance; R41.89 Other symptoms and signs involving cognitive functions and awareness; G47.19 Other hypersomnia
CPT/HCPCS: 99214

== ENCOUNTER → 2025-11-12 09:32 | Outpatient (BNVA) | payer MEDICARE, OTHER, SELFPAY | PROVIDERS: PCP Internal Medicine; Visit Provider Physician Assistant Medical | DX: G30.0 Alzheimer's disease with early onset (principal); F02.B3 Dementia in other diseases classified elsewhere, moderate, with mood disturbance; G47.19 Other hypersomnia; R41.89 Other symptoms and signs involving cognitive functions and awareness; Z81.8 Family history of other mental and behavioral disorders; R15.9 Full incontinence of feces; N39.498 Other specified urinary incontinence | CPT/HCPCS: 99212 ==